=== PATIENT | male | born 2000 | race African-American/Black ===

== ENCOUNTER 2023-03-02 09:32 | Emergency (ER) | payer OTHER, SELFPAY ==
[2023-03-02 09:44] VITALS: BP 121/80; PULSE 81; RESP 16; TEMP 36.4; O2SAT 97; BMI 22.9
--- NOTE | 2023-03-02 10:31 | ED_ITS ---
HPI - Male Genitourinary General Chief complaint: Urogenital-Male Stated complaint: Trouble urinating Time Seen by Provider: 03/02/23 09:51 History of Present Illness HPI Narrative: * patient complains of urinary hesitancy, for many months it has been hard to start the flow of urine but he is able to urinate, he has no complaint of discomfort there is no dysuria no burning with urination no discharge no back pain no flank pain no abdominal pain or bladder pain, there is no frequency or nocturia he is able to sleep through the night with no problem * There are no other associated symptoms no weight loss no blood in the urine no abdominal pain no testicular pain no testicular swelling no genital lesions no discharge no nausea or vomiting no rash Related Data Allergies Allergy/AdvReac Type Severity Reaction Status Date / Time No Known Allergies Allergy Verified 03/02/23 09:43 [facility] Past Medical History Source: nursing notes reviewed Social History Social History Advance Directives: No Advance Directives Information Provided: Yes Physical Exam Vital Signs: Vital Signs: Last Vital Signs Temp 97.5 F 03/02/23 09:44 Pulse 81 03/02/23 09:44 Resp 16 03/02/23 09:44 BP 121/80 03/02/23 09:44 Pulse Ox 97 03/02/23 09:44 O2 Del Method Room Air 03/02/23 09:44 BMI result Body Mass Index 22.9 general appearance well-developed well nourished comfortable cooperative Neck is supple Respiratory no distress Abdomen soft nontender Genital exam is normal, no lesions no sores no discharge no testicular swelling Extremities full range of motion x4 Skin no rash Course Course Course Narrative: patient complains or urinary hesitancy meaning is sometimes slow meaning a few seconds to start the urinary stream, he is always able to urinate fully, no other complaint Urinalysis was normal, renal function was normal, other lab work no acute abnormalities Patient is referred to Urology, well-appearing and comfortable throughout visit and was discharged Medical Decision Making Lab Data MDM Lab Attestation statement: I reviewed the patient's lab results. 03/02/23 11:10 03/02/23 11:10 Labs: Lab Results 03/02/23 03/02/23 03/02/23 Range/Units 10:42 11:10 11:10 WBC 5.3 (4.8-10.8) X10*3/uL RBC 5.07 (4.60-5.80) X10*6/uL Hgb 15.5 (14.0-18.0) g/dl Hct 45.6 (42.0-52.0) % MCV 89.9 (80.0-98.0) fL MCH 30.6 (27.0-33.0) pg MCHC 34.0 (31.0-36.0) g/dl RDW 13.0 (11.0-16.0) % Plt Count 182 (160-400) X10*3/uL MPV 10.5 (9.4-12.4) fL Immature Gran % (Auto) 0.2 (0.0-0.4) % Neut % (Auto) 56.0 (45-73) % Lymph % (Auto) 20.4 (20-40) % [place] % (Auto) 20.2 H (2-11) % Eos % (Auto) 2.8 (0-4) % Baso % (Auto) 0.4 (0-2) % Lymph # (Auto) 1.1 L (1.2-4.9) X10*3/uL [place] # (Auto) 1.1 (0.1-1.2) X10*3/uL Eos # (Auto) 0.2 (0.0-0.4) X10*3/uL Baso # (Auto) 0.0 (0.0-0.2) X10*3/uL Abs Immat Gran (auto) 0.01 (0.00-0.03) X10*3/uL Absolute Neuts (auto) 3.0 (2.0-8.3) x10*3/uL Absolute Nucleated RBC 0.000 (0.0-0.012) X10*3/uL Nucleated RBC % (auto) 0.0 (0.0-0.2) /100WBC Smear Tech's Comments VERIFIED Sodium 142 (135-145) mmol/L Potassium 4.2 (3.3-5.1) mmol/L Chloride 104 (96-108) mmol/L Carbon Dioxide 32 H (22-29) mmol/L Anion Gap 10 L (12-20) BUN 9 (9-16) mg/dL Creatinine 1.03 (0.5-1.4) mg/dL Estim Creat Clear Calc 116.3 Estimated GFR > 60 Random Glucose 91 (60-115) mg/dL Calcium 9.3 (8.4-10.2) mg/dL Urine Color Yellow Urine Appearance Clear Urine pH 6.5 (5.0-9.0) Ur Specific [place] 1.025 (1.005-1.025) Urine Protein Negative (Neg-Trace) mg/dL Urine Glucose (UA) Negative (Negative) mg/dL Urine Ketones Trace (Negative) mg/dL Urine Blood Negative (Negative) Urine Nitrite Negative (Negative) Ur Leukocyte Esterase Negative (Negative) Discharge Plan Discharge Clinical Impression: Urinary hesitancy Patient Disposition: Home, Self-Care Additional Instructions: your urinalysis was normal with no sign of infection, kidney function was normal, no acute abnormalities in the blood tests best plan is to follow with urologist for further evaluation with specialist Return to the ER any time any worse condition or any concerns Referrals: Henok Rosenthal MD [Physician] - ( urinary hesitancy for months) Interventions: ED Discharge Assessment Last Done: 03/02/23 12:16 Discharge Date/Time: 03/02/23 12:16
[2023-03-02 10:55] LABS: Appearance Urine Clear; Color Urine Yellow; Glucose Urine UA Negative (Negative); Leukocyte Esterase Urine Negative (Negative); Nitrite Urine Negative (Negative); PH 6.5 (5.0-9.0); Specific Gravity - Urine 1.025 (1.005-1.025); Urine Blood Negative (Negative); Urine Ketones Trace mg/dL (Negative); Urine Protein Negative (Neg-Trace)
[2023-03-02 11:21] LABS: Basophils Percent Auto 0.4 % (0-2); Eosinophils Absolute Auto 0.2 X10*3/uL (0.0-0.4); Eosinophils Percent Auto 2.8 % (0-4); Hematocrit 45.6 % (42.0-52.0); Hemoglobin 15.5 g/dl (14.0-18.0); Imm Gran Abs Auto 0.01 X10*3/uL (0.00-0.03); Imm Gran Pct Auto 0.2 % (0.0-0.4); Lymphocytes Absolute Auto 1.1 X10*3/uL (1.2-4.9); Lymphocytes Percent Auto 20.4 % (20-40); MANUAL DIFF FLAG SCAN; Mean Corpuscular Hemoglobin 30.6 pg (27.0-33.0); Mean Corpuscular Volume 89.9 fL (80.0-98.0); Mean Platelet Volume 10.5 fL (9.4-12.4); Monocytes Absolute Auto 1.1 X10*3/uL (0.1-1.2); Monocytes Percent Auto 20.2 % (2-11); Platelet Count 182 X10*3/uL (160-400); Red Blood Count 5.07 X10*6/uL (4.60-5.80); SCAN SMEAR FLAG 1; White Blood Count 5.3 X10*3/uL (4.8-10.8)
[2023-03-02 11:33] LABS: Anion Gap 10 (12-20); Blood Urea Nitrogen 9 mg/dL (9-16); Calcium 9.3 mg/dL (8.4-10.2); Carbon Dioxide 32 mmol/L (22-29); Chloride 104 mmol/L (96-108); Creatinine Clr Calc Pharmacy 116.3; Estimated Glomerular Filt Rate > 60; Glucose Random 91 mg/dL (60-115); Potassium 4.2 mmol/L (3.3-5.1); Sodium 142 mmol/L (135-145)
[2023-03-02 11:52] LABS: SLIDE REVIEW VERIFIED
== END 2023-03-02 12:16 | disposition home or self-care (01) ==
PROVIDERS: Physician Assistant Medical; Emergency Provider Emergency Medicine
DX: R33.9 Retention of urine, unspecified (principal); Z79.899 Other long term (current) drug therapy
CPT/HCPCS: 36415; 80048; 81003; 85025; 99282; 99283